=== PATIENT | male | born 1990 | race Two or more races ===

== ENCOUNTER 2022-08-23 09:28 | Emergency (ER) | payer OTHER, SELFPAY ==
[2022-08-23 09:33] VITALS: PULSE 80; RESP 18; TEMP 36.8; O2SAT 99; BMI 28.8
[2022-08-23 10:40] LABS: IDNOW Serial# 6674DD1D; Strep A Nucleic Acid Negative (Negative)
[2022-08-23 10:44] LABS: COVID-19 Test Negative (Negative); IDNOW Serial# BCCEAD1C
--- NOTE | 2022-08-23 10:44 | ED_ITS ---
HPI - URI/Sore Throat General Chief Complaint: Upper Respiratory Symptoms Stated Complaint: Sore throat Time Seen by Provider: 08/23/22 10:30 Source: patient Mode of arrival: ambulatory Limitations: no limitations History of Present Illness HPI Narrative: 32 yo male presenting to the ER with sore throat for the last 2 weeks. He states it has been getting progressively worse. He had a fever last week but none sinc e. No other symptoms. He states he is drinking well but it hurts to eat so his PO intake has decreased. No N/V/D, cough, abd pain or SOB. No neck swelling. MD elicited complaint: sore throat Onset (ago): week(s) (2) Consistency: progressively worsening Severity: moderate Able to tolerate fluids by mouth: Yes Exacerbating factors: swallowing Relieving factors: nothing Associated symptoms: fever and sore throat Treatments prior to arrival: none Related Data Previous Rx's Medication Instructions Recorded amoxicillin 875 mg-potassium 1 tab PO Q12H #20 tabs 08/23/22 clavulanate 125 mg tablet Allergies Allergy/AdvReac Type Severity Reaction Status Date / Time Unable to Assess Allergy Unverified 08/23/22 10:00 Review of Systems Review of Systems: Yes all other systems are reviewed and are negative [facility] Social History Social History Advance Directives: No Advance Directives Information Provided: No Physical Exam Vital Signs: Vital Signs: Last Vital Signs Temp 98.2 F 08/23/22 09:33 Pulse 80 08/23/22 09:33 Resp 18 08/23/22 09:33 Pulse Ox 99 08/23/22 09:33 O2 Del Method 08/23/22 09:33 BMI result Body Mass Index 28.8 Appearance: Alert. Oriented X3. No acute distress. Eyes: Pupils equal, round and reactive to light. ENT: Pharynx With moist mucous membranes. There is bilateral tonsillar enlargement with exudate bilaterally. Uvula is midline. Normal voice, handling secretions normally. Normal tympanic membranes bilaterally Neck: Normal inspection. Neck supple. palpable lymphadenopathy bilaterally, equal and symmetrical, no trismus CVS: Normal heart rate and rhythm. Pulses normal. Respiratory: No respiratory distress. Breath sounds normal. Skin: Skin warm and dry. Normal skin color. Normal skin turgor. No rashes. Extremities: No lower extremity edema. Neuro: Oriented X 3. grossly normal, nonfocal Course Course Course Narrative: 32-year-old male presents to the ER with sore throat for the last 2 weeks. Symptoms have been worsening. Pain is p.o.. Airway is normal, no evidence of retropharyngeal abscess, peritonsillar abscess. He is negative for strep, COVID, flu. Given the appearance of his tonsils on examination will treat empirically with Augmentin. Patient was counseled on his diagnosis and management. motor vehicle parts interpreter was used to answer all questions. Stable for discharge home. Medical Decision Making Differential Diagnosis Differential Diagnoses: The differential diagnosis associated with the presentation includes Strep throat, viral pharyngitis, less likely retropharyngeal abscess or peritonsillar abscess. doubt dental infection Lab Data MDM Lab Attestation statement: I reviewed the patient's lab results. Labs: Lab Results 08/23/22 08/23/22 08/23/22 Range/Units 10:18 10:18 10:18 COVID-19 (PAPA) Negative (Negative) COVID-19 Clin Com See Note Influenza Type A (ANALILIA) Negative (Negative) Influenza Type B (ANALILIA) Negative (Negative) Influenza A & B Note See Note S. pyogenes GrpA ANALILIA Negative (Negative) Independent Historian Clinical information obtained from an independent historian. History obtained from or confirmed by: Spouse Prescription Management I considered prescription management with: Pain Medication and Antibiotic Discharge Plan Discharge Clinical Impression: Pharyngitis Patient Disposition: Home, Self-Care Instructions: Pharyngitis (ED) Additional Instructions: You tested you tested negative for strep throat, influenza and COVID-19. Given your exam findings your being treated for bacterial pharyngitis with antibiotics. Take the prescribed antibiotics as directed, complete the entire course. Use warm salt water gargles several times per day. Use over the counter Chloraseptic spray or Cepacol lozenges for sore throat. Take ibuprofen or tylenol as needed for pain. Drink plenty of fluids. Follow up with your doctor as needed. If you develop new or worsening symptoms call 911 or come back to the ER for further evaluation. Phil negativo en la prueba de faringitis estreptoc?cica, influenza y COVID-19. Dados los resultados de de leon examen, est? siendo tratado por faringitis bacteriana con antibi?ticos. [place] los antibi?ticos prescritos seg?n las indicaciones, complete todo el curso. Ilir g?rgaras con agua salada tibia varias veces al d?a. Use el spray Chloraseptic de venta barbara o las pastillas Cepacol para el dolor de garganta. [place] ibuprofeno o tylenol seg?n sea necesario para el dolor. Beber mucho l?quido. Ilir un seguimiento con de leon m?dico seg?n sea necesario. Si desarrolla s?ntomas nuevos o que empeoran, llame al 911 o regrese a la eli de emergencias para louise evaluaci?n adicional. Prescriptions: New amoxicillin-pot clavulanate 875-125 mg tablet 1 tab PO Q12H Qty: 20 0RF
[2022-08-23 10:56] LABS: IDNOW Serial# 9DB6401D; Influenza A Negative (Negative); Influenza B2 Negative (Negative)
== END 2022-08-23 11:27 | disposition home or self-care (01) ==
PROVIDERS: Physician Assistant; Emergency Provider Emergency Medicine Emergency Medical Services
DX: J02.9 Acute pharyngitis, unspecified (principal); Z20.822 Contact with and (suspected) exposure to COVID-19
CPT/HCPCS: 87502; 87635; 87651; 99282; 99283